=== PATIENT | male | born 1970 | race Caucasian/White ===

== ENCOUNTER 2019-04-01 10:49 | Inpatient (IN) | payer MEDICARE, MEDICAID ==
[2019-04-01] VITALS (7 sets, daily range): BP systolic 116–137; BP diastolic 57–96; BMI 33.3
[~2019-04-01] VITALS: Ht 175.3 cm; Wt 102.1 kg
[2019-04-01 11:59] LABS: BASOPHILS 0 % (0-2); EOSINOPHILS 0 % (0-7); HEMATOCRIT 44.5 % (42.0-54.0); HEMOGLOBIN 15.7 g/dL (13.5-17.5); IMMATURE GRANULOCYTES 0.3 % (0-5); LYMPHOCYTES 3.3 % (15-50); MCHC 35.3 g/dL (31.0-37.0); MCV 85.1 fL (80.0-100.0); MEAN PLATELET VOLUME 11.9 fL (7.4-10.4); MONOCYTES 4.6 % (2-11); NEUTROPHILS 91.8 % (40-80); PLATELET COUNT 139 10x3/uL (130-400); RBC 5.23 10x6/uL (4.20-6.10); RDW 14.2 % (11.5-14.5); WBC 18.3 10x3/uL (4.8-10.8)
[2019-04-01 12:06] LABS: CALC OSMOLALITY 273 mosm/kg (275-300); CALCIUM 8.6 mg/dL (8.5-10.1); CARBON DIOXIDE 23.8 mmol/L (21.0-32.0); CHLORIDE - SERUM 97 mmol/L (98-107); GLUCOSE 241 mg/dL (74-106); SODIUM 133 mmol/L (136-145); UREA NITROGEN 12 mg/dL (7-18); eGFR NON AFRICAN AMERICAN 85 mL/min (90-120)
[2019-04-01 12:18] LABS: ALBUMIN 4.1 g/dL (3.4-5.0); ALKALINE PHOSPHATASE 73 U/L (46-116); ALT (SGPT) 22 U/L (10-68); AMYLASE - SERUM 35 U/L (25-115); BILIRUBIN - TOTAL 1.24 mg/dL (0.2-1.3); LIPASE 69 U/L (73-393); PROTEIN - SERUM 7.9 g/dL (6.4-8.2); TROPONIN-I < 0.017 ng/mL (0.000-0.060)
[2019-04-01 13:28] LABS: APPEARANCE CLEAR (CLEAR); BACTERIA FEW /hpf (NEGATIVE); BILIRUBIN NEGATIVE (NEGATIVE); COLOR DK YELLOW (YELLOW); EPITHELIAL CELLS 0-5 /hpf (0-5); GLUCOSE 1000 mg/dL (NEGATIVE); KETONE LARGE mg/dL (NEGATIVE); MUCUS <1+ /lpf (NONE SEEN); NITRITE NEGATIVE (NEGATIVE); PROTEIN TRACE mg/dL (NEGATIVE); RED CELLS - URINE 0-5 /hpf (0-5); SPECIFIC GRAVITY 1.025 (1.005-1.020); WHITE CELLS - URINE RARE /hpf (NEGATIVE)
[2019-04-01 14:35] LABS: PROTIME 13.2 SECONDS (11.6-15.0)
--- NOTE | 2019-04-01 17:35 | NUR ---
RECEIVED TO ROOM 2219 VIA BED FROM PACU. SIGNIFICANT OTHER AND DAUGHTER AT BEDSIDE. A/O X3 WHEN HE IS AWAKE. O2 UP TO 3L NC TO MAINTAIN 94% OR BETTER. SKIN IS INTACT WTIHOUT REDNESS EXCEPT 3 SMALL INSERTION SITES TO ABDOMEN. DENIES NEEDS.
[2019-04-01] MEDS ORDERED: GABAPENTIN300 MG PO (17:40)
[2019-04-01] MEDS ORDERED: SEROQUEL100 MG PO (17:40)
[2019-04-01] MEDS ORDERED: ADDERALL 30 MG30 MG PO (17:41)
[2019-04-01] MEDS ORDERED: PROZAC20 MG PO (17:42)
[2019-04-01] MEDS ORDERED: KLONOPIN1 MG PO (17:42)
[2019-04-01] MEDS ORDERED: RISPERDAL2 MG PO (17:43)
[2019-04-01] MEDS ORDERED: CRESTOR20 MG PO (17:43)
[2019-04-01] MEDS ORDERED: MOBIC7.5 MG PO (17:45)
--- NOTE | 2019-04-01 19:00 | NUR ---
A/O WITH NO SIGNS OF ACUTE DISTRESS. IV TO THE LT HAND WITH NO REDNESS OR SWELLING NOTED. NC @2L AND LAP SITES X3 TO THE ABDOMEN. GAVE JELLO PER PT REQUEST. AT BEDSIDE. DENIES NO NEEDS AT THIS TIME. CONTINUE PLAN OF CARE.
--- NOTE | 2019-04-02 00:05 | NUR ---
CALLED MD TO GET PT SLEEPING MEDS. DENIES NO OTHER NEEDS AT THIS TIME. CONTINUE PLAN OF CARE.
[2019-04-02 04:00] VITALS: BP 97/47
[2019-04-02 05:40] LABS: BASOPHILS 0.1 % (0-2); EOSINOPHILS 0 % (0-7); HEMATOCRIT 36.3 % (42.0-54.0); IMMATURE GRANULOCYTES 0.2 % (0-5); LYMPHOCYTES 6.9 % (15-50); MCH 29.2 pg (26.0-34.0); MCHC 34.2 g/dL (31.0-37.0); MCV 85.6 fL (80.0-100.0); MEAN PLATELET VOLUME 11.5 fL (7.4-10.4); MONOCYTES 6.9 % (2-11); NEUTROPHILS 85.9 % (40-80); PLATELET COUNT 127 10x3/uL (130-400); RBC 4.24 10x6/uL (4.20-6.10); RDW 14.4 % (11.5-14.5)
[2019-04-02 05:41] LABS: HEMOGLOBIN 12.4 g/dL (13.5-17.5); WBC 13.2 10x3/uL (4.8-10.8)
[2019-04-02 05:46] LABS: CALC OSMOLALITY 276 mosm/kg (275-300); CALCIUM 7.7 mg/dL (8.5-10.1); CARBON DIOXIDE 28.4 mmol/L (21.0-32.0); CHLORIDE - SERUM 104 mmol/L (98-107); CREATININE - SERUM 0.8 mg/dL (0.6-1.3); SODIUM 138 mmol/L (136-145); UREA NITROGEN 12 mg/dL (7-18); eGFR NON AFRICAN AMERICAN > 90 mL/min (90-120)
[2019-04-02 05:48] LABS: GLUCOSE 123 mg/dL (74-106)
--- NOTE | 2019-04-02 08:00 | NUR ---
AWAKE AND ALERT. ORIENTED X3. REQUESTED AND GIVEN 2MG MORPHINE SLOW IVP FOR C/O ABDOMINAL PAIN LEVEL 8. WILL MONITOR. LUNGS ARE CLEAR BILATERALLY, NO COGUH NOTED. SKIN IS INTACT WITHOUT REDNESS EXCEPT 3 SMALL INSERTION SITES TO ABDOMEN WITH DRY INTACT DRESSINGS IN PLACE. IV TO LEFT HAND IS PATETN WITHOUT REDNESS AT INSERTION SITE. ATE ALL OF CL BREAKFAST TRAY WITHOUT DIFFICULTY. DENIES NEEDS.
--- NOTE | 2019-04-02 09:00 | NUR ---
AMBULATED 500 FEET IN HALLWAY PER SELF WITHOUT DIFFICULTY. DENIES NEEDS.
[2019-04-02 09:29] VITALS: BP 113/68
[2019-04-02 12:23] VITALS: BP 109/56
[2019-04-02 13:17] VITALS: Ht 175.3 cm; Wt 102.1 kg
[2019-04-02 16:11] VITALS: BP 132/78
--- NOTE | 2019-04-02 18:00 | NUR ---
AMBULATED IN HALLWAY PER SLEF. DENIES NEEDS. NO CHANGES NOTED.
--- NOTE | 2019-04-02 19:30 | NUR ---
A/O WITH NO SIGNS OF DISTRESS. IV TO THE LT FOREARM WITH NO REDNESS OR SWELIING. LAP SITES X3 TO ABDOMEN. DENIES NO NEEDS AT THIS TIME. CONTINUE PLAN OF CARE.
[2019-04-02 20:00] VITALS: BP 119/76
--- NOTE | 2019-04-03 00:37 | NUR ---
REPORTS THAT HE CANNOT HOLD A STEADY STREAM TO URINATE AND THAT IT JUST DRIBBLES OUT. BLADDER SCAN SHOWED 527. VOICED THAT HE FELT LIKE NEEDED TO VOID. WILL CONTINUE TO MONITOR.
--- NOTE | 2019-04-03 02:15 | NUR ---
PT VOICES THAT HE HAD VOIDED. STATED THAT HE HAD GONE ALOT. WILL CONTINUE TO MONITOR.
[2019-04-03 04:00] VITALS: BP 126/72
--- NOTE | 2019-04-03 04:34 | NUR ---
BLADDER SCAN SHOWED 165. DENIES NO OTHER NEEDS ATH THIS TIME. CONTINUE PLAN OF CARE.
[2019-04-03 06:16] LABS: BASOPHILS 0.1 % (0-2); EOSINOPHILS 0.6 % (0-7); HEMATOCRIT 34.9 % (42.0-54.0); HEMOGLOBIN 11.7 g/dL (13.5-17.5); IMMATURE GRANULOCYTES 0.2 % (0-5); LYMPHOCYTES 10.1 % (15-50); MCHC 33.5 g/dL (31.0-37.0); MCV 86.6 fL (80.0-100.0); MEAN PLATELET VOLUME 11.3 fL (7.4-10.4); MONOCYTES 6.9 % (2-11); NEUTROPHILS 82.1 % (40-80); PLATELET COUNT 120 10x3/uL (130-400); RBC 4.03 10x6/uL (4.20-6.10); RDW 14.4 % (11.5-14.5); WBC 10.1 10x3/uL (4.8-10.8)
[2019-04-03 06:29] LABS: ALKALINE PHOSPHATASE 56 U/L (46-116); BILIRUBIN - TOTAL 0.69 mg/dL (0.2-1.3); CALC OSMOLALITY 279 mosm/kg (275-300); CALCIUM 7.8 mg/dL (8.5-10.1); CARBON DIOXIDE 27.9 mmol/L (21.0-32.0); CHLORIDE - SERUM 104 mmol/L (98-107); CREATININE - SERUM 0.9 mg/dL (0.6-1.3); GLUCOSE 124 mg/dL (74-106); POTASSIUM - SERUM 3.7 mmol/L (3.5-5.1); PROTEIN - SERUM 6.1 g/dL (6.4-8.2); SODIUM 139 mmol/L (136-145); UREA NITROGEN 15 mg/dL (7-18); eGFR NON AFRICAN AMERICAN > 90 mL/min (90-120)
[2019-04-03 06:44] LABS: ALBUMIN 2.5 g/dL (3.4-5.0); ALT (SGPT) 14 U/L (10-68)
[2019-04-03] MEDS ORDERED: HYDROCODON-ACE1 EA10 PO (07:37)
[2019-04-03] MEDS ORDERED: LEVAQUIN750 MG PO (07:37)
[2019-04-03] MEDS ORDERED: FLAGYL500 MG PO (07:38)
--- NOTE | 2019-04-03 07:39 | OP ---
PATIENT NAME: JOSEFA GONZALEZ MEDICAL RECORD: [id number] :74 LOCATION:[id number] ADMISSION DATE:04/02/19 SURGEON: LUIS DANIEL AVITIA MD DATE OF OPERATION: 04/01/2019 PREOPERATIVE DIAGNOSES: 1. Acute appendicitis with localized peritonitis. 2. Prediabetic. POSTOPERATIVE DIAGNOSES: 1. Acute appendicitis with localized peritonitis. 2. Prediabetic. PROCEDURE: Laparoscopic appendectomy. SURGEON: Luis Daniel Avitia MD REPORT OF PROCEDURE: The patient's abdomen was prepped and draped in sterile fashion. A cutdown was made on the superior aspect of the umbilicus, 0 Vicryls were placed in the fascia bilaterally and the fascia was incised with 15-blade. I then bluntly entered the peritoneal cavity and placed a 12-mm South port. Under direct visualization, a 5-mm trocar was placed in the left lower quadrant and another was placed in the suprapubic region. The patient had a lot of inflammatory adhesions present in the right lower quadrant, mainly of the small bowel, upon itself. As we teased down these adhesions, there was some murky appearing fluid that did not appear to be frankly purulent. This fluid was extending down into the patient's pelvis and right pericolic gutter. The cecum was adherent to the lateral and anterior abdominal wall. As we peeled back the adhesions, we encountered the appendix. There were gangrenous changes to the appendix and there was a small area of perforation. Upon grasping the appendix, a portion of the appendix actually fell apart. We were able to dissect the appendix free from the surrounding tissues. In order to see the appendix better, we took down the adhesions of the cecum from the anterior abdominal wall and from the lateral abdominal wall. At this point, we could clearly see the appendix heading into the cecum. A window was made in the base of the appendix and the appendix was transected with a 45 blue load Endo-JEREMY stapler. The mesoappendix was then transected with a 45 white load Endo-JEREMY stapler. We then irrigated out the right lower quadrant and pelvis. We did not see any evidence of bleeding and the staple lines appeared to be intact. The appendix was placed into an Endo Catch bag and removed through the patient's umbilicus. The umbilical fascia was closed with interrupted 0 Vicryls times 3. The wound was then irrigated out with normal saline and infused with a total of 20 mL of 0.25% Marcaine with epinephrine. The skin incisions were closed with subcutaneous 5-0 Monocryl and dressed appropriately. COMPLICATIONS: None. CONDITION: Stable. ANESTHESIA: General endotracheal and local. BLOOD LOSS: Minimal. TRANSINT:[id number] Voice Confirmation ID: [id number] DOCUMENT ID: [id number] OPERATIVE REPORT [id number] JOSEFA GONZALEZ CHRISTIAN MD at 0739 CC: [id number] DICTATION DATE: 04/01/19 1640 CLIENT SUPPORT REPRESENTATIVE: 04/02/19 0251 ADM IN [facility] [address] [id number]
[2019-04-03 07:50] VITALS: BP 150/84
--- NOTE | 2019-04-03 08:00 | NUR ---
ASSESSMENT PER FLOW SHEET. PT IS WITHOUT DISTRESS.MONITOR FOR NEEDS
--- NOTE | 2019-04-03 09:00 | NUR ---
DECLINED BREAKFAST TRAY.PT STATES WANTS CEREAL,BUT DIDNT EAT IT.
--- NOTE | 2019-04-03 12:30 | NUR ---
LUNCH TRAY HERE. PT WILLNOT EAT DIET. CALL FOR CREAM OF CHICKEN SOUP AND POTATOES. INSTRUCTED PT TO SLOW DOWN ON CARBINATION.
[2019-04-03 13:24] VITALS: BP 131/78
--- NOTE | 2019-04-03 16:03 | NUR ---
HAS AMBULATED IN HALLS. WISHES TO GO OVER PAPERS SOON. TO COME FOR TRANSPORT HOME
--- NOTE | 2019-04-03 16:49 | NUR ---
FAMILY HERE. DISCHARGE INSTRUCTIONS,STATES UNDERSTANDING.IV DCD WITH CATH TIP INTACT.
--- NOTE | 2019-04-03 16:51 | NUR ---
LEFT UNIT VIA WHEELCHAIR FOR TRANSPORT HOME
== END 2019-04-03 16:51 | disposition home or self-care (01) | DRG 343 ==
LOC: D.OPS 10:49 → D.MS 10:49 → D.ER 10:49 → EDSTATUS 14:00 → D.SDCHOLD 14:24 → D.ER 14:24 → D.MS 17:08 → D.OPS 04-02 19:26 → D.MS 04-02 19:27
PROVIDERS: Family Medicine; ADMIT Surgery; ATTEND Surgery
PROC: 0DTJ4ZZ Resection of Appendix, Percutaneous Endoscopic Approach (ICD-10-PCS; principal; 2019-04-01 14:00)
DX: K35.30 Acute appendicitis with localized peritonitis, without perforation or gangrene (principal); R73.03 Prediabetes; G35 Multiple sclerosis

== ENCOUNTER 2019-04-15 12:37 | Inpatient (IN) | payer MEDICARE, MEDICAID ==
[~2019-04-15] VITALS: Ht 175.3 cm; Wt 93.0 kg
[~2019-04-15 12:37] MED LIST: ADDERALL 30 MG30 MG PO; CRESTOR20 MG PO; FLAGYL500 MG PO; GABAPENTIN300 MG PO; HYDROCODON-ACE1 EA10 PO; KLONOPIN1 MG PO; LEVAQUIN750 MG PO; MOBIC7.5 MG PO; PROZAC20 MG PO; RISPERDAL2 MG PO; SEROQUEL100 MG PO
[2019-04-15 18:12] VITALS: BP 132/71; BMI 30.3
[2019-04-15 20:00] VITALS: BP 126/82
--- NOTE | 2019-04-15 20:00 | NUR ---
ALERT RESTING IN BED, REPORTS TENDERNESS TO LOWER ABD AREA, IV STARTED X 1 ATTEMPT WITH 20 G LEFT FOREARM NS AT 125 STARTED ORDERED, INSTRUCTED ON DIET NPO AFTER MN, VERBALIZED UNDERSTANDING, SEE SHIFT ASSESSMENT, CALL LIGHT IN REACH
[2019-04-16] VITALS (16 sets, daily range): BP systolic 100–130; BP diastolic 42–78; Ht 175.3 cm; Wt 93.0 kg
[2019-04-16 05:37] LABS: BASOPHILS 0.1 % (0-2); EOSINOPHILS 1.3 % (0-7); HEMATOCRIT 35.6 % (42.0-54.0); HEMOGLOBIN 11.9 g/dL (13.5-17.5); IMMATURE GRANULOCYTES 0.2 % (0-5); LYMPHOCYTES 2.8 % (15-50); MCHC 33.4 g/dL (31.0-37.0); MCV 86.6 fL (80.0-100.0); MEAN PLATELET VOLUME 10.6 fL (7.4-10.4); MONOCYTES 5.8 % (2-11); NEUTROPHILS 89.8 % (40-80); RBC 4.11 10x6/uL (4.20-6.10); RDW 14.3 % (11.5-14.5)
[2019-04-16 05:48] LABS: CALC OSMOLALITY 275 mosm/kg (275-300); CALCIUM 7.8 mg/dL (8.5-10.1); CARBON DIOXIDE 28.7 mmol/L (21.0-32.0); CHLORIDE - SERUM 98 mmol/L (98-107); POTASSIUM - SERUM 3.9 mmol/L (3.5-5.1); SODIUM 135 mmol/L (136-145); UREA NITROGEN 9 mg/dL (7-18); eGFR NON AFRICAN AMERICAN 85 mL/min (90-120)
[2019-04-16 05:54] LABS: GLUCOSE 223 mg/dL (74-106); PLATELET COUNT 267 10x3/uL (130-400)
[2019-04-16 07:59] LABS: INR 1.22 (0.85-1.17); PROTIME 15.4 SECONDS (11.6-15.0)
[2019-04-16 08:00] LABS: APTT 36.5 SECONDS (22.8-39.4)
--- NOTE | 2019-04-16 09:00 | NUR ---
ALERT AND ORIENTED X4 WITH CONSENT SIGNED FOR PROCEDURE. ABDOMEN SOFT WITH BOWEL SOUNDS NOTED. DENIES ANY PAIN OR DISCOMFORT. CONTINUED NPO STATUS AT THIS TIME. ENCOURAGED TO USE CALL LIGHT FOR ASSIST
--- NOTE | 2019-04-16 11:45 | NUR ---
PT LEFT FOR PROCEDURE AND STABLE AT TIME OF DEPARTURE
--- NOTE | 2019-04-16 20:45 | NUR ---
UP AD LAZARO IN ROOM. DRESSING TO RIGHT ABD DRY/INTACT. NO COMPLAITNS VOICED. IV INFUSING TO LFA WITHOUT REDNESS OR EDEMA NOTED. CL IN REACH.
[2019-04-17] VITALS (7 sets, daily range): BP systolic 107–125; BP diastolic 65–77
--- NOTE | 2019-04-17 05:18 | NUR ---
I have reviewed this patient and I concur with the Shift Assessment completed by the Licensed Practical Nurse today this shift.
[2019-04-17 06:08] LABS: BASOPHILS 0.2 % (0-2); EOSINOPHILS 5.9 % (0-7); HEMATOCRIT 36.7 % (42.0-54.0); IMMATURE GRANULOCYTES 0.2 % (0-5); LYMPHOCYTES 27.3 % (15-50); MCH 28.5 pg (26.0-34.0); MCHC 32.7 g/dL (31.0-37.0); MCV 87.2 fL (80.0-100.0); MEAN PLATELET VOLUME 10.8 fL (7.4-10.4); MONOCYTES 9.8 % (2-11); NEUTROPHILS 56.6 % (40-80); PLATELET COUNT 296 10x3/uL (130-400); RBC 4.21 10x6/uL (4.20-6.10); RDW 14.4 % (11.5-14.5)
[2019-04-17 06:15] LABS: WBC 5.6 10x3/uL (4.8-10.8)
[2019-04-17 07:12] LABS: CALCIUM 8.3 mg/dL (8.5-10.1); CARBON DIOXIDE 29.7 mmol/L (21.0-32.0); CHLORIDE - SERUM 104 mmol/L (98-107); CREATININE - SERUM 0.8 mg/dL (0.6-1.3); SODIUM 141 mmol/L (136-145); UREA NITROGEN 10 mg/dL (7-18); eGFR NON AFRICAN AMERICAN > 90 mL/min (90-120)
[2019-04-17 07:13] LABS: CALC OSMOLALITY 281 mosm/kg (275-300); GLUCOSE 137 mg/dL (74-106); POTASSIUM - SERUM 4.5 mmol/L (3.5-5.1)
--- NOTE | 2019-04-17 09:00 | NUR ---
ALERT AND ORIENTED X4 ABDOMEN SOFT WITH BOWEL SOUNDS NOTED. DRESSING INTACT TO RLQ OF ABDOMEN. DENIES ANY PAIN OR DISCOMFORT. IVF INFUSING AT PRESCRIBED RATE. HRRR AND LUNGS CTA. NO PERIPHERAL EDEMA NOTED. ENCOURAGED TO USE CALL LIGHT FOR ASSSIT.
--- NOTE | 2019-04-17 20:29 | NUR ---
DISCHARGE INSTRUCTIONS REVIEWED WITH PATIENT/FAMILY. PT TAKEN OFF FLOOR BY QUARTER DOPER VIA WHEELCHAIR.
--- NOTE | 2019-04-19 10:52 | DS ---
PATIENT:JOSEFA GONZALEZ :74 MEDICAL RECORD: [id number] DISCHARGE SUMMARY ADMISSION DATE: 04/15/19 DISCHARGE DATE: 04/17/19 PRINCIPAL DIAGNOSIS: Postoperative intra-abdominal abscess. SECONDARY DIAGNOSES: Multiple sclerosis, diabetes, obstructive sleep apnea on BiPAP/CPAP, chronic back pain, depression, history of appendectomy, history of tonsillectomy and adenoidectomy. PROCEDURE: Interventional radiology guided drainage of abscess. HOSPITAL COURSE: The patient underwent laparoscopic appendectomy for perforated appendicitis. He was re-admitted after CT scan revealed a small abscess in the right lower quadrant. The patient was started on intravenous antibiotics. The interventional radiologist, Dr. Edge performed CT-guided aspiration of a small right lower quadrant fluid collection with lavage. There is 13 cc of light brown turbid fluid. The patient was continued on IV antibiotics. At the time of dismissal, the patient's vital signs were stable. He was afebrile. White count was normal at 5.6. The fluid had grown 3+ early growth, but this was the preliminary report and the organisms were not listed. The patient was tolerating a regular diet at dismissal. He is being dismissed home on Cipro 500 mg 1 p.o. q. 12 hours for 7 days as well as Flagyl 500 mg 1 p.o. q. 8 hours for 7 days. He is to follow up with Dr. Winn in his office in 2-3 weeks. Discharge instructions were given to the patient verbally by me. The patient did not desire antiemetic prescription and did not desire an analgesic prescription. TRANSINT:[id number] Voice Confirmation ID: [id number] DOCUMENT ID: [id number] TRU BURCH MD at 1052 CC: [id number] DICTATION DATE: 04/17/191899 SPECIAL EDUCATION TEACHER: 04/17/192203 DIS IN 04/17/[id number] [place] [address]
[2019-04-25 16:08] LABS: AEROBE ID Final report (())
[2019-04-26 17:08] LABS: AEROBE ID Final report (())
[2019-04-26 17:08] LABS: AEROBE ID Preliminary report (()); RESULT 1 Gram positive rods (())
== END 2019-04-17 20:37 | disposition home or self-care (01) | DRG 862 ==
LOC: D.CT 12:37 → D.MS 16:32
PROVIDERS: Radiology Diagnostic Radiology; ADMIT Surgery; ATTEND Surgery
PROC: 0W9G30Z Drainage of Peritoneal Cavity with Drainage Device, Percutaneous Approach (ICD-10-PCS; principal; 2019-04-15)
DX: T81.42XA Infection following a procedure, deep incisional surgical site, initial encounter (principal); K65.1 Peritoneal abscess; G35 Multiple sclerosis; E11.9 Type 2 diabetes mellitus without complications; G47.33 Obstructive sleep apnea (adult) (pediatric); M54.89 Other dorsalgia

== ENCOUNTER → 2020-05-31 12:31 | Outpatient (CLI) | payer MEDICARE, MEDICAID ==
[2019-04-16 12:59] VITALS: BMI 30.2
== END | disposition home or self-care (01) ==
LOC: D.LAB 12:31
PROVIDERS: ATTEND Internal Medicine Pulmonary Disease
DX: J44.9 Chronic obstructive pulmonary disease, unspecified (principal); Z20.822 Contact with and (suspected) exposure to COVID-19

== ENCOUNTER → 2020-07-21 09:32 | Outpatient (CLI) | payer MEDICARE, MEDICAID ==
[2019-04-16 12:59] VITALS: BMI 30.2
[2020-07-21 09:51] LABS: BASOPHILS 0.3 % (0-2); EOSINOPHILS 4.5 % (0-7); HEMATOCRIT 40.7 % (42.0-54.0); IMMATURE GRANULOCYTES 0.1 % (0-5); LYMPHOCYTE ABS# 2.03 10x3/uL (1.32-3.57); LYMPHOCYTES 25.6 % (15-50); MCH 29.9 pg (26.0-34.0); MCHC 34.4 g/dL (31.0-37.0); MEAN PLATELET VOLUME 11.3 fL (7.4-10.4); MONOCYTES 6.2 % (2-11); NEUTROPHIL ABS# 5.01 10x3/uL (1.78-5.38); NEUTROPHILS 63.3 % (40-80); RBC 4.68 10x6/uL (4.20-6.10); RDW 13.9 % (11.5-14.5); WBC 7.9 10x3/uL (4.8-10.8)
[2020-07-21 09:56] LABS: PLATELET COUNT 124 10x3/uL (130-400)
== END | disposition home or self-care (01) ==
LOC: D.LAB 09:32
PROVIDERS: ATTEND Internal Medicine Pulmonary Disease
DX: J44.9 Chronic obstructive pulmonary disease, unspecified (principal)

== ENCOUNTER → 2020-07-25 12:35 | Outpatient (CLI) | payer MEDICARE, MEDICAID ==
[2019-04-16 12:59] VITALS: BMI 30.2
[2020-07-25 13:57] LABS: BASOPHILS 0.4 % (0-2); EOSINOPHILS 1.9 % (0-7); HEMATOCRIT 41.4 % (42.0-54.0); HEMOGLOBIN 14.4 g/dL (13.5-17.5); IMMATURE GRANULOCYTES 0.1 % (0-5); LYMPHOCYTE ABS# 2.18 10x3/uL (1.32-3.57); LYMPHOCYTES 31.4 % (15-50); MCH 29.9 pg (26.0-34.0); MCHC 34.8 g/dL (31.0-37.0); MCV 86.1 fL (80.0-100.0); MEAN PLATELET VOLUME 11.1 fL (7.4-10.4); MONOCYTES 6.5 % (2-11); NEUTROPHIL ABS# 4.14 10x3/uL (1.78-5.38); NEUTROPHILS 59.7 % (40-80); PLATELET COUNT 120 10x3/uL (130-400); RBC 4.81 10x6/uL (4.20-6.10); RDW 13.9 % (11.5-14.5); WBC 6.9 10x3/uL (4.8-10.8)
== END | disposition home or self-care (01) ==
LOC: D.LAB 06-05 13:00 → D.RT 06-05 14:00 → D.LAB 12:35
PROVIDERS: ATTEND Internal Medicine Pulmonary Disease
DX: J44.1 Chronic obstructive pulmonary disease with (acute) exacerbation (principal); J20.9 Acute bronchitis, unspecified; J44.9 Chronic obstructive pulmonary disease, unspecified